=== PATIENT | female | born 1995 | race Hispanic/Latino ===

== ENCOUNTER 2017-07-14 05:10 | Inpatient (IN) | payer OTHER ==
[2017-07-14 05:41] VITALS: BMI 32.5
--- NOTE | 2017-07-14 05:58 | PDOC.LDHP ---
Labor and Delivery H&P HPI: @0600: L^D Triage: Patient of Dr ennis. CC: Contractions HPI: 21 yo G1 at 38 weeks 3 days with contractioins every 4-5 minutes since a few hours. She denies ROM or VB, no recent trauma. No DONOVAN, no vision issues, no complication. She saw Dr Ennis yesterday but cannot remember her exam results. Review of Systems: complete review completed and negative as per HPI Current gestational age (weeks): 38 (3 days) Dating criteria: last menstrual period Grav: 1 Para: 0 Current complications: none Abnormal US findings: No Current medications: pre- vitamins Previous surgical history: other Allergies/Adverse Reactions: Allergies Allergy/AdvReac Type Severity Reaction Status Date / Time No Known Allergies Allergy Verified 07/14/17 05:37 - Physical Exam Vital signs reviewed and normal: yes (120/60 98.9) General: NAD Heart: RRR Lungs: CTAB Abdomen: gravid Extremeties: no edema FHT: category 1 [place] contractions every: Contractions are irregular but are seen on toco about every 3-5 min - Vaginal Exam cm dilated: 3 Effacement: 75% Station: -2 - Assessment Latent phase of labor at term, G1 - Plan Plan: observation in L&D (We will give 1 liter LR. Keep monitoring. Recheck in 1 hour or so. Admit if cervix progresses or pain is not controlled.), informed consent obtained
[2017-07-14] MEDS ORDERED: Lactated Ringer's 1,000 ML IV SCH (06:00)
--- NOTE | 2017-07-14 06:45 | PDOC.EVN ---
Event Note - Event Note Event Note: @0645: Patient seen again at bedside. Strip reviewed again: Cat 1, irregular contrcations. BPs 130s/80s. CX by RN /-1/I. Still latent phase and declines medications for pain. We will watch another hour and admit if needed for continued contractions. Plan D/W patient and partner. RN at bedside.
[2017-07-14] MEDS ORDERED: Lidocaine 1% (PF) 30 ML VIAL SC PRN (08:07)
[2017-07-14] MEDS ORDERED: LR / Pitocin 40 units/1000 ml 1,000 ML IV PRN (08:07)
[2017-07-14] MEDS ORDERED: Ibuprofen 800 MG TAB PO PRN (08:07)
[2017-07-14] MEDS ORDERED: HYDROcodone/Acetaminophen 5/325 mg Tablet PO PRN ×2 (08:07)
[2017-07-14] MEDS ORDERED: Promethazine HCl 25 MG/ML VIAL IM PRN ×2 (08:07→08:44)
--- NOTE | 2017-07-14 08:12 | PDOC.EVN ---
Event Note - Event Note Event Note: @0810: Follow up exam now 7cm. I discussed with Dr ennis. We will admit to L& D. GBS negative. Dr ennis is unavailable today, Dr Luevano will resume/assume care. Chloé with me now. Admit orders done.
[2017-07-14] MEDS ORDERED: Bupivacaine 0.5% 20 ML, fentaNYL Citrate/PF 400 MCG in Sodium Chloride 0.9% 72 ML EPIDURAL SCH ×2 (08:15→09:15)
[2017-07-14 08:19] LABS: Hemoglobin 12.5 g/dL (12.0-16.0); Mean Corpuscular HGB CONC 33.7 g/dL (32.0-36.0); Mean Corpuscular Hemoglobin 29.6 pg (27.0-31.0); Mean Corpuscular Volume 87.8 fl (81.0-99.0); Mean Platelet Volume 9.6 fL (7.4-10.4); Platelet Count 222 thou/uL (130-400); RBC Distribution Width 15.5 % (11.5-14.5); Red Blood Cell (RBC) Count 4.21 mill/uL (4.20-5.40); White Blood Cell (WBC) Count 18.2 thou/uL (4.8-10.8)
[2017-07-14] MEDS ORDERED: diphenhydrAMINE 50 MG/ML VIAL IVP PRN (08:44)
[2017-07-14] MEDS ORDERED: Acetaminophen 325 MG TAB PO PRN (08:44)
[2017-07-14] MEDS ORDERED: ePHEDrine/0.9% NaCl/PF SYRINGE 50 mg/10 ml SLOW IVP PRN (08:44)
[2017-07-14] MEDS ORDERED: Naloxone HCl 0.4 mg/ml Vial IVP PRN (08:44)
[2017-07-14] MEDS ORDERED: Lactated Ringer's 500 ML IV PRN (08:44)
[2017-07-14] MEDS ORDERED: Ondansetron HCl/PF 4 MG/2 ML Vial IVP PRN ×3 (08:44→13:43)
[2017-07-14] MEDS ORDERED: Eucerin (Mineral Oil/Petrolatum,White) 30 gm Jar TOP PRN (08:44)
[2017-07-14] MEDS ORDERED: Fentanyl 4mcg/Marcaine 0.1% Cassette 100 ML EPIDURAL SCH (08:45)
[2017-07-14] MEDS ORDERED: Communication Order-Pharmacy FS SCH (08:45)
[2017-07-14 08:48] LABS: Syphilis Antibody Nonreactive (Nonreactive); Syphilis Antibody Index 0.05 S/CO (<1.00 Non-Reactive)
[2017-07-14 08:49] LABS: HBSAg Index 0.21 S/CO (0-0.99); HIV (1/2) Antibody/Antigen Non-Reactive (NonReactive); HIV 1/2 INDEX 0.09 S/CO (<1.00); Hep B Surf Ag Non-Reactive S/CO (NonReactive)
[2017-07-14] MEDS ORDERED: DISCONTINUE ALL PREVIOUS NARCOTICS FS SCH (09:15)
[2017-07-14] MEDS ORDERED: CEFAZOLIN/Water 2 GM/20 ML SYRINGE ONE (09:32)
[2017-07-14] MEDS ORDERED: Bicitra 30 ML UDCUP ONE (09:32)
--- NOTE | 2017-07-14 09:36 | PDOC.LDPN ---
Labor & Delivery Progress Note - Subjective Subjective: comfortable - Objective Vital signs reviewed and normal: yes General: NAD, resting Uterine fundus: non tender Dilation: 6 Effacement: 90% Station: -2 FHT: category 1 [place] contractions every: 5 AROM: clear fluid - Assessment (1) Breech presentation Code(s): O32.1XX0 - MATERNAL CARE FOR BREECH PRESENTATION, UNSP Current Visit : Yes Status: Acute Qualifiers: Fetus number: single or unspecified fetus Qualified Code(s): O32.1XX0 - Maternal care for breech presentation, not applicable or unspecified (2) delivery indicated due to breech presentation Code(s): O32.1XX0 - MATERNAL CARE FOR BREECH PRESENTATION, UNSP Current Visit : Yes Status: Acute -: Fetus noted to be breech. Risks discussed, questions answered. Will proceed with delivery.
[2017-07-14] MEDS ORDERED: Bicitra 30 ML UDCUP PO SCH (09:45)
[2017-07-14] MEDS ORDERED: CEFAZOLIN/Water 2 GM/20 ML SYRINGE SLOW IVP SCH (09:45)
[2017-07-14] MEDS ORDERED: Lidocaine 2% 10 ML INJ ONE (09:52)
[2017-07-14] MEDS ORDERED: Lidocaine 1.5% w/Epi 1:200K 30 ML VIAL (Epid Use) ONE (09:53)
[2017-07-14] MEDS ORDERED: Bupivacaine 0.5% 10 ML VIAL ONE ×2 (09:53→10:10)
[2017-07-14] MEDS ORDERED: Morphine PF 1 MG/ML SYR ONE (10:00)
[2017-07-14] MEDS ORDERED: Fentanyl 100 MCG/2 ML VIAL ONE (10:01)
[2017-07-14] MEDS ORDERED: ePHEDrine/0.9% NaCl/PF SYRINGE 50 mg/10 ml ONE (10:01)
[2017-07-14] MEDS ORDERED: Oxytocin 10 UNITS/ML VIAL ONE (10:01)
[2017-07-14] MEDS ORDERED: Dexamethasone 4 mg/ml Vial ONE (10:01)
[2017-07-14] MEDS ORDERED: PHENYLEPHRINE-NS 100 MCG/ML 10 ML SYRINGE ONE (10:01)
[2017-07-14] MEDS ORDERED: Ketorolac Tromethamine 30 MG/ML VIAL ONE ×2 (10:01→19:46)
[2017-07-14] MEDS ORDERED: Promethazine HCl 25 MG/ML VIAL ONE (10:46)
[2017-07-14] MEDS ORDERED: Lanolin Ointment 7 GM TUBE TOP PRN (13:43)
[2017-07-14] MEDS ORDERED: Adacel (T-DAP) 0.5 ML VIAL IM ONE (13:43)
[2017-07-14] MEDS: Ibuprofen 800 MG TAB PO SCH ×2 (18:34→21:25)
[2017-07-14] MEDS: Lactated Ringer's 1,000 ML IV SCH ×2 (19:01→19:44)
[2017-07-14] MEDS ORDERED: Dexamethasone 20 MG/5 ML VIAL ONE (19:46)
[2017-07-14] MEDS: HYDROcodone/Acetaminophen 5/325 mg Tablet PO PRN (23:04)
--- NOTE | 2017-07-15 00:11 | OP-2 ---
DATE OF PROCEDURE: 07/14/2017 RESIDENT SURGEON: Dr. Michael Holt. ATTENDING SURGEON: Dr. Nirali Luevano. PROCEDURE: Primary low transverse section. PREOPERATIVE DIAGNOSES: 1. Term intrauterine . 2. Breech presentation. POSTOPERATIVE DIAGNOSES: 1. Term intrauterine , delivery. 2. Breech presentation. ANESTHESIA: Epidural. INDICATIONS: The patient is a 21-year-old G1 female at 38.3 weeks gestation who presented in labor. Patient was noted to be in breech position immediately following AROM. Fluid was noted to be clear, and a was called. PROCEDURE IN DETAIL: After risks, benefits, and alternatives were explained to the patient, she gave informed consent. Preoperative antibiotics included cefazolin 2 grams IV. The patient was taken to the operating room and already had an epidural in place. She was placed in supine position with left tilt and prepped and draped in sterile fashion. A Pfannenstiel incision was made with scalpel and carried down to the level of the fascia which was sharply nicked. Fascial cut was extended bilaterally with Brady scissors. Inferior and superior edges of the cut fascial edges were elevated with Luiz clamps and the underlying rectus muscles were sharply and bluntly dissected free. The recti were divided digitally and retracted manually. Peritoneum was entered bluntly and retracted manually. Ravin O was placed. Low transverse score was made with scalpel and uterus was entered in the midline with the scalpel. Clear fluid was seen. Hysterotomy was extended manually. The infant was noted to be dominic breech. Legs, arms and head were delivered easily. Mouth and nares were bulb suctioned. Cord was clamped and cut and grossly normal female. was handed to waiting nurse. Cord blood was obtained. Placenta was manually extracted, found to be intact with 3-vessel cord and discarded. The endometrium was curetted with a dry lap. The peritoneum closed with a running locking 1-0 Monocryl suture followed by a running nonlocking Monocryl suture. The uterus was closed with a running locking 1-0 Monocryl suture followed by a running nonlocking 1-0 Monocryl imbricating suture. Following this, hemostasis was noted. Uterus was internalized. Hysterotomy was again noted to be hemostatic. Fascia was closed with a running nonlocking 0 PDS suture. Subcutaneous tissue was irrigated and there were no bleeders. Subcutaneous tissue was closed with a 3-0 chromic suture. Skin was approximated with erwin and pressure dressing was placed. All counts were correct. Patient tolerated procedure well and was taken to recovery room in stable condition. ESTIMATED BLOOD LOSS: 800 mL. COMPLICATIONS: None. SPECIMENS: Cord blood sent to lab for blood type. FINDINGS: Grossly normal female . IMPRESSION: Normal placenta, 3-vessel cord, discarded. DRAINS: Castro to gravity draining clear urine. MTDD
[2017-07-15] MEDS: Lactated Ringer's 1,000 ML IV SCH ×3 (00:42→17:41)
[2017-07-15 05:52] LABS: Hemoglobin 8.6 g/dL (12.0-16.0); Mean Corpuscular HGB CONC 33.2 g/dL (32.0-36.0); Mean Corpuscular Hemoglobin 29.6 pg (27.0-31.0); Mean Corpuscular Volume 89.2 fl (81.0-99.0); Mean Platelet Volume 8.4 fL (7.4-10.4); Platelet Count 160 thou/uL (130-400); RBC Distribution Width 15.3 % (11.5-14.5); Red Blood Cell (RBC) Count 2.91 mill/uL (4.20-5.40); White Blood Cell (WBC) Count 15.6 thou/uL (4.8-10.8)
[2017-07-15] MEDS: Ibuprofen 800 MG TAB PO SCH ×3 (06:09→21:08)
[2017-07-15] MEDS ORDERED: Sodium Chloride 0.9% 10 ML ONE (06:30)
[2017-07-15] MEDS: Naloxone HCl 0.4 mg/ml Vial IVP PRN ×2 (06:32→06:51)
--- NOTE | 2017-07-15 07:23 | PDOC.PP ---
Post Progress Note Post Day #: 1 Subjective: Doing well this morning, no complaints. PO intake tolerated: yes Flatus: yes Ambulation: yes Vital Signs (12 hours) Temp Pulse Resp BP 07/15/17 03:58 98.3 F 73 16 103/62 07/15/17 02:00 16 07/14/17 23:05 98.6 F 80 16 107/53 L 07/14/17 22:22 16 07/14/17 20:00 98.7 F 80 16 103/59 L Weight Weight 167 lb - Physical Examination General: NAD Respiratory: non-labored breathing Abdominal: lochia (normal), no distention, appropriately TTP Skin: CS incision dry & intact, no rash Neurological: no gross focal deficits Psychiatric: A&Ox3, normal affect Result Diagrams: 07/15/17 05:22 Additional Labs: Post Labs Blood Type O POSITIVE 07/14/17 08:12 Hep Bs Antigen Non-Reactive S/CO (NonReactive) 07/14/17 08:12 (1) Breech presentation Code(s): O32.1XX0 - MATERNAL CARE FOR BREECH PRESENTATION, UNSP Status: Acute Qualifiers: Fetus number: single or unspecified fetus Qualified Code(s): O32.1XX0 - Maternal care for breech presentation, not applicable or unspecified (2) delivery indicated due to breech presentation Code(s): O32.1XX0 - MATERNAL CARE FOR BREECH PRESENTATION, UNSP Status: Acute - Assessment/Plan Doing well on POD1. Continue routine postop management.
[2017-07-15] MEDS: Prenatal Vitamin 1 TAB PO SCH (09:31)
[2017-07-15] MEDS: HYDROcodone/Acetaminophen 5/325 mg Tablet PO PRN ×2 (09:32→14:33)
[2017-07-16] MEDS: HYDROcodone/Acetaminophen 5/325 mg Tablet PO PRN ×2 (04:25→11:06)
[2017-07-16] MEDS: Ibuprofen 800 MG TAB PO SCH (04:25)
[2017-07-16] MEDS: Lactated Ringer's 1,000 ML IV SCH ×2 (05:27→09:04)
--- NOTE | 2017-07-16 07:02 | PDOC.PP ---
Post Progress Note Post Day #: POD#2 Subjective: No c/o today. Hungry. PO intake tolerated: yes Flatus: yes Ambulation: yes Vital Signs (12 hours) Temp Pulse Resp BP 07/16/17 00:00 98.2 F 81 18 119/61 07/15/17 22:00 98.0 F 71 18 07/15/17 20:00 98.0 F 71 18 119/71 Weight Weight 75.75 kg - Physical Examination General: NAD Respiratory: non-labored breathing Extremities: negative homans (B) Skin: CS incision dry & intact Psychiatric: normal affect Result Diagrams: 07/15/17 05:22 Additional Labs: Post Labs Blood Type O POSITIVE 07/14/17 08:12 Hep Bs Antigen Non-Reactive S/CO (NonReactive) 07/14/17 08:12 - Assessment/Plan POD#2 Doing well. Advance diet. Ambulate hallway.
[2017-07-16 07:59] VITALS: BP 115/61; TEMP 98.3
[2017-07-16] MEDS: Prenatal Vitamin 1 TAB PO SCH (09:04)
== END 2017-07-16 11:45 | disposition home or self-care (01) | DRG 766 ==
LOC: L&D/OP 05:10 → L&D 08:25 → 3SW 13:42 → 3SE 07-15 18:15
PROVIDERS: ADMIT Obstetrics & Gynecology; ATTEND Obstetrics & Gynecology
PROC: 10D00Z1 Extraction of Products of Conception, Low, Open Approach (ICD-10-PCS; principal; 2017-07-14)
DX: O32.1XX0 Maternal care for breech presentation, not applicable or unspecified (principal); Z37.0 Single live birth; Z3A.38 38 weeks gestation of pregnancy
CPT/HCPCS: 36415; 51702; 76815; 85027; 86780; 86850; 86900; 86901; 87340; 87389; 99285; A4216; J1100; J1885; J2274; J2310; J2550; J2590; J3010; J3490; J7050